=== PATIENT | male | born 1955 | race Caucasian/White ===

== ENCOUNTER 2016-10-28 17:03 | Emergency (ER) | payer OTHER ==
--- NOTE | 2016-10-28 18:15 | DIAGNOSTIC IMAGING REPORT ---
PROCEDURE: XR ABD SERIES 2V ABD/1V CHEST INDICATION: ABDOMINAL PAIN TECHNIQUE: AP supine and upright views with PA view chest. COMPARISON: None. FINDINGS: ABDOMEN: Bowel pattern is normal. No evidence of free air. Soft tissues and osseous structures are normal. CHEST: Lungs are clear. Heart and mediastinum are normal. Thorax is normal. IMPRESSION: 1. Negative acute abdomen series.
--- NOTE | 2016-10-28 19:06 | ED NURSING NOTES ---
Clinical Report - Nurses [facility] [place] [address] 10/28/2016 17:03 Patient: ALONSO LINDSAY TRIAGE Triage time 17:08. Acuity: LEVEL 3. Chief Complaint: ABDOMINAL PAIN, NAUSEA and DIARRHEA. Alert. No acute distress. SEPSIS SCREEN: Sepsis Screen: negative. Negative (no infection suspected/documented). --17:14 Malena Garcia R.N. 17:08 10/28/16. BP: 158/92. HR: 72. RR: 16. O2 saturation: 98% on room air. Temp: 98.1 F. --17:14 Malena Garcia R.N. 17:08 10/28/16. BP: 158/92. HR: 72. RR: 16. O2 saturation: 98% on room air. Temp: 98.1 F. --17:14 Malena Garcia R.N. 19:25 10/28/16. BP: 170/89. HR: 74. RR: 20. O2 saturation: 99% on room air. Temp: deferred. Pain level now: 09/30. --19:28 Malena Garcia R.N. Weight: 117.9 kg estimated. Height/Length: 72 inches Estimated. BMI: 35.3. --17:12 Malena Garcia R.N. Medications None. --17:12 Malena Garcia R.N. Medication/allergy information source: the patient. --17:14 Malena Garcia R.N. Allergies Codeine. --17:12 Malena Garcia R.N. History Arrived by EMS. Historian: patient. Primary physician (ayanna). This is a recurrent problem. Symptoms are intermittent and still present (1 months ago, pain in llq got worse today Movement makes feel like stabbing.). He has had nausea, diarrhea and cramping, intermittent abdominal pain. The pain is described as located in the LLQ and associated with nausea, vomiting and diarrhea. Last oral intake by patient was 3 hours ago. 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 See EMS report. BP: 158 / 92 sitting. HR: 72. RR: 16. Temp: 98.1 oral. O2 saturation: 98 % room air. ( Moved self to the [facility]). Upon arrival patient awake. SURGERY HX: Cholecystectomy. SOCIAL HX: Heavy tobacco smoker (cigarette)- less than 1 pack per day. No alcohol use or drug use. FALL RISK ASSESSMENT: Fall risk assessment completed. No fall risk identified. NUTRITIONAL RISK ASSESSMENT: The nutritional risk assessment revealed no deficiencies. FUNCTIONAL ASSESSMENT: Functional assessment: no impairments noted. LEARNING NEEDS ASSESSMENT: The learning needs assessment revealed no barriers. SKIN INTEGRITY ASSESSMENT: Skin integrity risk assessment completed. No skin integrity risk identified. MICHAEL COMA SCORE: Michael Coma Scale: 15- eyes open spontaneously (4); best verbal response- oriented x 4 (5); best motor response- obeys commands (6). --17:14 Malena Garcia R.N. PROBLEMS: Lifestyle / Substance Problems. Gastritis. Asthma. CVA - Cerebrovascular Accident. Restless Legs Syndrome. Hypertension. --17:12 Malena Garcia R.N. ADDITIONAL SURGERIES: Back Surgery. --17:12 Malena Garcia R.N. Interventions ID band on patient. To room. --17:14 Malena Garcia R.N. PHYSICAL ASSESSMENT To room via wheelchair. Patient gowned. GENERAL / NEURO / PSYCH: Alert. Oriented X 4. Appears in pain and anxious. HEENT: Mucous membranes are pink. RESPIRATORY: Respirations not labored. CVS: Capillary refill less than 2 seconds. GI / : Abdominal tenderness in the left lower quadrant. SKIN: Skin is warm and dry. --17:15 Malena Garcia R.N. NURSING PROGRESS NOTES Patient gowned. Head of bed elevated. Two patient identifiers checked. Call light placed in reach. Side rails up x 2. Bed placed in lowest position. Brakes of bed on. Patient ready for evaluation. --17:16 Malena Garcia R.N. 17:19 10/28/2016 Site #1 started via IV in the right wrist with an 20g angiocath, with aseptic technique and good blood return; one attempt. Blood drawn: rainbow set. Labeled in the presence of the patient and sent to the lab. Saline lock flushed with 10 mL saline. --17:29 Malena Garcia R.N. Patient returned from radiology by stretcher with tech. ([id number]). --18:00 Malena Garcia R.N. 17:55 10/28/2016 Morphine IVP 4 mg given. via site #1. Allergies verified, confirmed 5 rights and sedative warning given to the patient. IV patency established. IV site checked: no pain, redness, or swelling. IV flushed thoroughly pre- and post-medication administration. IVP given by RN. --18:01 Malena Garcia R.N. EKG time: (18:05 PM). EKG was performed by a tech and shown to the ED physician. --18:09 Fer Pastrana 18:20. Patient ID band checked for patient name and birthdate: patient confirmed urine collected with return of hi-colored clear urine; odor is normal; sample sent to lab for urinalysis. Specimen labeled in the presence of the patient. --18:31 Jessica Zacarias. DISPOSITION / DISCHARGE 19:20. Condition at departure: improved. No learning barriers present. Discharge instructions provided and reviewed with the patient. Reviewed medication(s) side effects, precautions, dosing and course information. Prescription(s) given to the patient. Patient verbalized understanding. Written instructions provided in [place]. The patient was discharged home and accompanied by oven baker. He left the Emergency Department ambulatory and via private vehicle. Director Of Federal Sales driving. Medication list reviewed and validated. --19:26 Malena Garcia R.N. 19:25 10/28/16. BP: 170/89. HR: 74. RR: 20. O2 saturation: 99% on room air. Temp: deferred. Pain level now: 09/30. 18:14 10/28/16. BP: 166/78. HR: 71. RR: 20. O2 saturation: 99% on room air. Pain level now: 08/30. 17:08 10/28/16. BP: 158/92. HR: 72. RR: 16. O2 saturation: 98% on room air. Temp: 98.1 F. --19:26 Malena Garcia R.N. Locked/Released at 10/28/2016 19:29 by Malena Garcia R.N.
--- NOTE | 2016-10-28 19:06 | ED ORDER SUMMARY ---
..... Patient: ALONSO LINDSAY OrderSheet [facility] VisitID: [id number] [address] [place] [address] 61y, M Registration Date/Time: 10/28/2016 ORDER SHEET Weight: 117.9 kg (estimated) Allergies: Codeine GENERAL ORDERS: Abd Series 2V Abd/1V Chest Urgent (17:16 10/28/2016 EKoroleva P.A.-C) (17:29 SRoberts R.N.) (Ack 17:29 LTapper) Land Surveying Party Chief (Continuous) (17:16 10/28/2016 EKoroleva P.A.-C) (17:59 SRoberts R.N.) Cardiac Panel Stat (17:16 10/28/2016 EKoroleva P.A.-C) (17:23 SRoberts R.N.) (Ack 17:29 LTapper) EKG - ER Stat (17:16 10/28/2016 EKoroleva P.A.-C) (Ack 17:29 LTapper) (17:59 SRoberts R.N.) Lipase Urgent (17:27 10/28/2016 EKoroleva P.A.-C) (Ack 17:29 LTapper) (17:43 SRoberts R.N.) Culture, Stool Urgent (17:29 10/28/2016 EKoroleva P.A.-C) (Ack 17:43 LTapper) (Cancelled: Unable to Otnnipy45:27 SRoberts R.N.) Urine Drug Screen Urgent (17:46 10/28/2016 EKoroleva P.A.-C) (Ack 17:48 LTapper) (19:17 AMcQuoid ER Tech1) UA-Culture if indicated Urgent (17:57 10/28/2016 EKoroleva P.A.-C) (Ack 17:59 RKaruga) (19:17 AMcQuoid ER Tech1) MEDICATION ORDERS: IV FLUIDS: IV Saline Lock (17:16 10/28/2016 EKoroleva P.A.-C) (17:29 SRoberts R.N.) Morphine IV 4 mg (HIGH ALERT MEDICATION, NOW) (17:16 10/28/2016 Mikala De La Torre) (Ack 17:31 Jason Shahid) (18:01 Jason Shahid) ORDER SHEET NOTES: [Electronically signed by Malena Garcia R.N. (19:29 10/28/2016)] [Electronically signed by Noemy Pedersen P.A.-C (19:46 10/28/2016)] [Electronically locked/signed by Malena Garcia R.N. (19:29 10/28/2016)]
--- NOTE | 2016-10-28 19:06 | ED CLINICAL REPORT ---
Clinical Report - Physicians/Mid Levels [facility] [address] [place] [address] 10/28/2016 17:03 [id number] Time Seen: 17:12 Oct 10 2016. Arrived- By ambulance. Historian- EMS personnel. HISTORY OF PRESENT ILLNESS Chief Complaint: ABDOMINAL PAIN. This started 1 months FRAME STYLIST and is still present. It is described as "pain" and it is described as located in the left abdomen. No nausea, loss of appetite, vomiting or diarrhea. (61-year-old male with abdominal pain over the last 1 month, worsening over the last few days, with associated diarrhea. Reports pain is under his rib cage. Denies any radiation of pain. Denies history of similar pain. Denies any trauma or car accident. Denies any heavy drinking. Patient is status post cholecystectomy. NO melana.). REVIEW OF SYSTEMS No constipation, hematemesis, difficulty with urination, pain with urination or urinary frequency. No fever, sore throat, blurred vision, chest pain or chills. All systems otherwise negative, except as recorded above. PAST HISTORY Problems: Lifestyle / Substance Problems. Gastritis. Asthma. CVA - Cerebrovascular Accident. Restless Legs Syndrome. Hypertension. Additional Surgeries: Back Surgery. Cholecystectomy. Medications: None. Allergies: Codeine. SOCIAL HISTORY Smoker- current status unknown. No alcohol use. ADDITIONAL NOTES The nursing notes have been reviewed. PHYSICAL EXAM Vital Signs: 10/28/2016 17:08 BP: 158/92. HR: 72. RR: 16. O2 saturation: 98%. Temp: 98.1 F. Appearance: Alert. ENT: Nose normal. Neck: Normal inspection. No carotid bruit or meningeal signs. CVS: Normal heart rate and rhythm. Heart sounds normal. Respiratory: No respiratory distress. Breath sounds normal. No accessory muscle use or decreased air movement. Abdomen: Moderate tenderness in the left side of the abdomen. No organomegaly. No mass. Obese. No scar present. Back: Normal inspection. No CVA tenderness. Skin: Normal skin color. Neuro: Oriented X 3. LABS, X-RAYS, AND EKG EKG: EKG time: (1805). No acute process. No acute ischemia. Normal EKG. Rate: 60. Normal QRS complex. Normal axis. Normal ST and T waves and QT. The study has been interpreted contemporaneously. The study has been independently viewed by me. The EKG appears to be a good tracing. Laboratory Tests: UA-Culture if indicated: (BECKY: 10/28/2016 18:20) ( [facility] 10/28/2016 18:59) Final results Test Result Flag Units (Reference) URINE COLOR YELLOW URINE APPEARANCE CLEAR URINE GLUCOSE NEGATIVE (NEGATIVE) URINE BILIRUBIN NEGATIVE (NEGATIVE) URINE KETONE TRACE (NEGATIVE) URINE SPECIFIC GRAVITY >= 1.030 (1.010-1.030) URINE PH 6.0 (5.0-8.0) URINE PROTEIN NEGATIVE (NEGATIVE) URINE UROBILINOGEN 1.0 EU/dL (0.2-1.0) URINE NITRITE NEGATIVE (NEGATIVE) URINE BLOOD NEGATIVE (NEGATIVE) URINE LEUK ESTERASE NEGATIVE (NEGATIVE) URINE RBC NONE SEEN rbc/hpf (0-1) URINE WBC 0-1 wbc/hpf (0-1) URINE EPITHELIAL CELLS 1-3 EPI/hpf (0-5) URINE BACTERIA TRACE (<1+) (NONE SEEN) URINE COMMENT CULT NOT INDICATED 3+ MUCOUSURINE CULTURES ARE SET-UP BASED ON THE FOLLOWING CRITERIA:POSITIVE NITRITEPOSITIVE LEUKOCYTE ESTERASEGREATER THAN 10 WHITE BLOOD CELLSMODERATE (2+) OR GREATER BACTERIA CBC w Diff: (BECKY: 10/28/2016 17:20) ( [facility] 10/28/2016 17:41) Final results Test Result Flag Units (Reference) WHITE BLOOD COUNT 7.4 K/uL (4.5-11.5) RED BLOOD COUNT 5.05 M/uL (4.50-5.90) HEMOGLOBIN 15.9 gm/dL (13.5-17.5) HEMATOCRIT 46.5 % (41.0-53.0) MEAN CELL VOLUME 92 fL (80-100) MEAN CORPUSCULAR HGB 32 pg (26-34) MEAN CORPUSCULAR HGB CONC 34 g/dL (31-37) RED CELL DISTRIBUTION WIDTH 13.6 % (11.6-14.8) PLATELET COUNT 179 K/uL (150-400) NEUTROPHIL % 68.5 % (50-75) LYMPH % 21.4 L % (25-40) MONO % 6.1 % (3-14) EOSINOPHIL % 3.6 % (0-4) BASOPHIL % 0.4 % (0-2) Urine Drug Screen: (BECKY: 10/28/2016 18:20) ( [facility] 10/28/2016 18:56) Final results Test Result Flag Units (Reference) AMPHETAMINE/METHAMPHETAMINE POSITIVE H (NEGATIVE) BARBITURATE NEGATIVE (NEGATIVE) BENZODIAZEPINE NEGATIVE (NEGATIVE) CANNABINOID NEGATIVE (NEGATIVE) COCAINE NEGATIVE (NEGATIVE) ECSTASY NEGATIVE (NEGATIVE) METHADONE NEGATIVE (NEGATIVE) OPIATE POSITIVE H (NEGATIVE) The urine drug screen is a qualitative screening test fordrug overdose and abuse. All screen results should beconsidered as presumptive.Drugs screened for are as follows:BenzodiazepinesCocaineAmphetamines/MetamphetaminesTHC (Tetrahydrocannabinol)OpiatesBarbituratesEcstasyMethadonePositive results are unconfirmed. For confirmation, notifythe lab for the specimen to be sent to the reference lab.All confirmations must be performed by a differentmethodology.The ingestion of natural herbal and plant productscontaining Ephedra/Ephedra metabolites can produce in urineone or more substances capable of cross reacting withamphetamine/methamphetamine immunoassays. These testsprovide a preliminary result only. A more specificalternative chemical method must be used to obtain aconfirmed analytical result. Lipase: (BECKY: 10/28/2016 17:20) ( [facility] 10/28/2016 17:47) Final results Test Result Flag Units (Reference) LIPASE 182 U/L (73-393) CHEM 13 PANEL: (BECKY: 10/28/2016 17:20) ( [facility] 10/28/2016 17:49) Final results Test Result Flag Units (Reference) GLUCOSE 153 H mg/dL (70-110) BUN 18 mg/dL (7-18) CREATININE 0.9 mg/dL (0.6-1.3) Estimated GFR >60 mL/min Estimated GFR- >60 mL/min Note: Persistent reduction over 3 months in eGFR<60 mL/min/1.73 m2 defines CKD. Patients with eGFR values>=60 mL/min/1.73 m2 may also have CKD if evidence ofpersistent proteinuria. Additional information may be foundat www.kidney.org. SODIUM 144 mmol/L (136-145) POTASSIUM 3.9 mmol/L (3.5-5.1) CHLORIDE 109 H mmol/L (98-107) CARBON DIOXIDE 28 mmol/L (21-32) CALCIUM 9.2 mg/dL (8.5-10.1) TOTAL PROTEIN 6.9 g/dL (6.4-8.2) ALBUMIN 3.3 g/dL (3.3-5.0) BILIRUBIN, TOTAL 0.2 mg/dL (0.0-1.0) ALKALINE PHOSPHATASE 107 U/L (46-116) AST (SGOT) 9 L U/L (15-37) ALT (SGPT) 39 U/L (12-78) CPK 48 U/L (24-260) MAGNESIUM 1.8 mg/dL (1.8-2.4) TROPONIN I <0.05 ng/mL (0.00-1.5) TROPONIN REFERENCE RANGE:<0.1 NEGATIVE0.1-1.5 INDETERMINANT>1.5 POSITIVE . Note - Tests: (xr abd series: IMPRESSION: 1. Negative acute abdomen series. Electronically Final signed by:Cesar Dos Santos MD 10/28/2016 6:14:55 PM). PROGRESS AND PROCEDURES Course of Care: During the time in the ED, the following DDX were considered: acute surgical abdomen, hemodynamic or metabolic instability, dehydration, gastroenteritis-viral, food borne, or bacterial, food intolerance, irritable or inflammatory bowel, infection, sepsis. Ongoing for a month, with no acute sob/ chest pain. No cva tendernss. 10/28/2016 19:25 BP: 170/89. HR: 74. RR: 20. O2 saturation: 99%. Pain level now: 2/10. Patient is stable. Patient/family counseled. Differential Diagnosis: I considered gastritis, gastroenteritis, peptic ulcer disease, acute appendicitis, diverticulitis, small bowel obstruction, adhesions, biliary colic, cholecystitis, hepatitis, pancreatitis, splenic injury, urinary tract infection, cystitis, ovarian cyst, abdominal aortic aneurysm, myocardial infarction, pneumonia, diabetic ketoacidosis and medications as a possible cause of abdominal pain in this patient. This is a partial list of diagnoses considered. Disposition: Discharged. Condition: good. CLINICAL IMPRESSION Acute abdominal pain of unknown cause. Hypertension. Substance abuse problems: abuse of methamphetamine. INSTRUCTIONS Drink plenty of fluids. (follow up with your DR in 3 days). Prescription Medications: Zofran (orally disintegrating tablets) 4 mg: take 1 orally every 6 hours for 3 days. Dispense ten (10). No refill. Substitution is permissible. Ultram 50 mg: take 1 orally every 6 hours for 3 days, as needed for pain. Dispense fifteen (15). No refills. Substitution is permissible. Understanding of the discharge instructions verbalized. (Electronically signed by Noemy Pedersen P.A.-C 10/28/2016 19:46) Addenda for ALONSO LINDSAY Jamel VisitID: [id number] Date: 10/28/2016 10/28/2016 19:31 19:20 10/28/2016 Site #1 removed upon discharge. Catheter intact. Bandaid applied. (Electronically signed by Malena Garcia R.N. - 10/28/2016 19:31)
--- NOTE | 2016-10-28 19:06 | ED ORDER SUMMARY ---
..... Patient: ALONSO LINDSAY OrderSheet [facility] VisitID: [id number] [address] [place] [address] 61y, M Registration Date/Time: 10/28/2016 ORDER SHEET Weight: 117.9 kg (estimated) Allergies: Codeine GENERAL ORDERS: Abd Series 2V Abd/1V Chest Urgent (17:16 10/28/2016 EKoroleva P.A.-C) (17:29 SRoberts R.N.) (Ack 17:29 LTapper) Web Interface Developer (Continuous) (17:16 10/28/2016 EKoroleva P.A.-C) (17:59 SRoberts R.N.) Cardiac Panel Stat (17:16 10/28/2016 EKoroleva P.A.-C) (17:23 SRoberts R.N.) (Ack 17:29 LTapper) EKG - ER Stat (17:16 10/28/2016 EKoroleva P.A.-C) (Ack 17:29 LTapper) (17:59 SRoberts R.N.) Lipase Urgent (17:27 10/28/2016 EKoroleva P.A.-C) (Ack 17:29 LTapper) (17:43 SRoberts R.N.) Culture, Stool Urgent (17:29 10/28/2016 EKoroleva P.A.-C) (Ack 17:43 LTapper) (Cancelled: Unable to Krqzkgm05:27 SRoberts R.N.) Urine Drug Screen Urgent (17:46 10/28/2016 EKoroleva P.A.-C) (Ack 17:48 LTapper) (19:17 AMcQuoid ER Tech1) UA-Culture if indicated Urgent (17:57 10/28/2016 EKoroleva P.A.-C) (Ack 17:59 RKaruga) (19:17 AMcQuoid ER Tech1) MEDICATION ORDERS: IV FLUIDS: IV Saline Lock (17:16 10/28/2016 EKoroleva P.A.-C) (17:29 SRoberts R.N.) Morphine IV 4 mg (HIGH ALERT MEDICATION, NOW) (17:16 10/28/2016 Mikala De La Torre) (Ack 17:31 Jason Shahid) (18:01 Jason Shahid) ORDER SHEET NOTES: [Electronically signed by Malena Garcia R.N. (19:29 10/28/2016)] [Electronically signed by Noemy Pedersen P.A.-C (19:46 10/28/2016)] [Electronically locked/signed by Malena Garcia R.N. (19:29 10/28/2016)]
--- NOTE | 2016-10-28 19:06 | ED NURSING NOTES ---
Clinical Report - Nurses [facility] [place] [address] 10/28/2016 17:03 Patient: ALONSO LINDSAY TRIAGE Triage time 17:08. Acuity: LEVEL 3. Chief Complaint: ABDOMINAL PAIN, NAUSEA and DIARRHEA. Alert. No acute distress. SEPSIS SCREEN: Sepsis Screen: negative. Negative (no infection suspected/documented). --17:14 Malena Garcia R.N. 17:08 10/28/16. BP: 158/92. HR: 72. RR: 16. O2 saturation: 98% on room air. Temp: 98.1 F. --17:14 Malena Garcia R.N. 17:08 10/28/16. BP: 158/92. HR: 72. RR: 16. O2 saturation: 98% on room air. Temp: 98.1 F. --17:14 Malena Garcia R.N. 19:25 10/28/16. BP: 170/89. HR: 74. RR: 20. O2 saturation: 99% on room air. Temp: deferred. Pain level now: 09/30. --19:28 Malena Garcia R.N. Weight: 117.9 kg estimated. Height/Length: 72 inches Estimated. BMI: 35.3. --17:12 Malena Garcia R.N. Medications None. --17:12 Malena Garcia R.N. Medication/allergy information source: the patient. --17:14 Malena Garcia R.N. Allergies Codeine. --17:12 Malena Garcia R.N. History Arrived by EMS. Historian: patient. Primary physician (ayanna). This is a recurrent problem. Symptoms are intermittent and still present (1 months ago, pain in llq got worse today Movement makes feel like stabbing.). He has had nausea, diarrhea and cramping, intermittent abdominal pain. The pain is described as located in the LLQ and associated with nausea, vomiting and diarrhea. Last oral intake by patient was 3 hours ago. 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 See EMS report. BP: 158 / 92 sitting. HR: 72. RR: 16. Temp: 98.1 oral. O2 saturation: 98 % room air. ( [place] [facility] Upon arrival patient awake. SURGERY HX: Cholecystectomy. SOCIAL HX: Heavy tobacco smoker (cigarette)- less than 1 pack per day. No alcohol use or drug use. FALL RISK ASSESSMENT: Fall risk assessment completed. No fall risk identified. NUTRITIONAL RISK ASSESSMENT: The nutritional risk assessment revealed no deficiencies. FUNCTIONAL ASSESSMENT: Functional assessment: no impairments noted. LEARNING NEEDS ASSESSMENT: The learning needs assessment revealed no barriers. SKIN INTEGRITY ASSESSMENT: Skin integrity risk assessment completed. No skin integrity risk identified. MICHAEL COMA SCORE: Michael Coma Scale: 15- eyes open spontaneously (4); best verbal response- oriented x 4 (5); best motor response- obeys commands (6). --17:14 Malena Garcia R.N. PROBLEMS: Lifestyle / Substance Problems. Gastritis. Asthma. CVA - Cerebrovascular Accident. Restless Legs Syndrome. Hypertension. --17:12 Malena Garcia R.N. ADDITIONAL SURGERIES: Back Surgery. --17:12 Malena Garcia R.N. Interventions ID band on patient. To room. --17:14 Malena Garcia R.N. PHYSICAL ASSESSMENT To room via wheelchair. Patient gowned. GENERAL / NEURO / PSYCH: Alert. Oriented X 4. Appears in pain and anxious. HEENT: Mucous membranes are pink. RESPIRATORY: Respirations not labored. CVS: Capillary refill less than 2 seconds. GI / : Abdominal tenderness in the left lower quadrant. SKIN: Skin is warm and dry. --17:15 Malena Garcia R.N. NURSING PROGRESS NOTES Patient gowned. Head of bed elevated. Two patient identifiers checked. Call light placed in reach. Side rails up x 2. Bed placed in lowest position. Brakes of bed on. Patient ready for evaluation. --17:16 Malena Garcia R.N. 17:19 10/28/2016 Site #1 started via IV in the right wrist with an 20g angiocath, with aseptic technique and good blood return; one attempt. Blood drawn: rainbow set. Labeled in the presence of the patient and sent to the lab. Saline lock flushed with 10 mL saline. --17:29 Malena Garcia R.N. Patient returned from radiology by stretcher with tech. ([id number]). --18:00 Malena Garcia R.N. 17:55 10/28/2016 Morphine IVP 4 mg given. via site #1. Allergies verified, confirmed 5 rights and sedative warning given to the patient. IV patency established. IV site checked: no pain, redness, or swelling. IV flushed thoroughly pre- and post-medication administration. IVP given by RN. --18:01 Malena Garcia R.N. EKG time: (18:05 PM). EKG was performed by a tech and shown to the ED physician. --18:09 Fer Pastrana 18:20. Patient ID band checked for patient name and birthdate: patient confirmed urine collected with return of hi-colored clear urine; odor is normal; sample sent to lab for urinalysis. Specimen labeled in the presence of the patient. --18:31 Jessica Zacarias. DISPOSITION / DISCHARGE 19:20. Condition at departure: improved. No learning barriers present. Discharge instructions provided and reviewed with the patient. Reviewed medication(s) side effects, precautions, dosing and course information. Prescription(s) given to the patient. Patient verbalized understanding. Written instructions provided in Polish. The patient was discharged home and accompanied by research leader. He left the Emergency Department ambulatory and via private vehicle. Blood Bank Attendant driving. Medication list reviewed and validated. --19:26 Malena Garcia R.N. 19:25 10/28/16. BP: 170/89. HR: 74. RR: 20. O2 saturation: 99% on room air. Temp: deferred. Pain level now: 09/30. 18:14 10/28/16. BP: 166/78. HR: 71. RR: 20. O2 saturation: 99% on room air. Pain level now: 08/30. 17:08 10/28/16. BP: 158/92. HR: 72. RR: 16. O2 saturation: 98% on room air. Temp: 98.1 F. --19:26 Malena Garcia R.N. Locked/Released at 10/28/2016 19:29 by Malena Garcia R.N.
--- NOTE | 2016-10-28 19:06 | ED CLINICAL REPORT ---
Clinical Report - Physicians/Mid Levels [facility] [address] [place] [address] 10/28/2016 17:03 [id number] Time Seen: 17:12 Oct 10 2016. Arrived- By ambulance. Historian- EMS personnel. HISTORY OF PRESENT ILLNESS Chief Complaint: ABDOMINAL PAIN. 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 It is described as "pain" and it is described as located in the left abdomen. No nausea, loss of appetite, vomiting or diarrhea. (61-year-old male with abdominal pain over the last 1 month, worsening over the last few days, with associated diarrhea. Reports pain is under his rib cage. Denies any radiation of pain. Denies history of similar pain. Denies any trauma or car accident. Denies any heavy drinking. Patient is status post cholecystectomy. NO melana.). REVIEW OF SYSTEMS No constipation, hematemesis, difficulty with urination, pain with urination or urinary frequency. No fever, sore throat, blurred vision, chest pain or chills. All systems otherwise negative, except as recorded above. PAST HISTORY Problems: Lifestyle / Substance Problems. Gastritis. Asthma. CVA - Cerebrovascular Accident. Restless Legs Syndrome. Hypertension. Additional Surgeries: Back Surgery. Cholecystectomy. Medications: None. Allergies: Codeine. SOCIAL HISTORY Smoker- current status unknown. No alcohol use. ADDITIONAL NOTES The nursing notes have been reviewed. PHYSICAL EXAM Vital Signs: 10/28/2016 17:08 BP: 158/92. HR: 72. RR: 16. O2 saturation: 98%. Temp: 98.1 F. Appearance: Alert. ENT: Nose normal. Neck: Normal inspection. No carotid bruit or meningeal signs. CVS: Normal heart rate and rhythm. Heart sounds normal. Respiratory: No respiratory distress. Breath sounds normal. No accessory muscle use or decreased air movement. Abdomen: Moderate tenderness in the left side of the abdomen. No organomegaly. No mass. Obese. No scar present. Back: Normal inspection. No CVA tenderness. Skin: Normal skin color. Neuro: Oriented X 3. LABS, X-RAYS, AND EKG EKG: EKG time: (1805). No acute process. No acute ischemia. Normal EKG. Rate: 60. Normal QRS complex. Normal axis. Normal ST and T waves and QT. The study has been interpreted contemporaneously. The study has been independently viewed by me. The EKG appears to be a good tracing. Laboratory Tests: UA-Culture if indicated: (BECKY: 10/28/2016 18:20) ( [facility] [place] 10/28/2016 18:59) Final results Test Result Flag Units (Reference) URINE COLOR YELLOW URINE APPEARANCE CLEAR URINE GLUCOSE NEGATIVE (NEGATIVE) URINE BILIRUBIN NEGATIVE (NEGATIVE) URINE KETONE TRACE (NEGATIVE) URINE SPECIFIC GRAVITY >= 1.030 (1.010-1.030) URINE PH 6.0 (5.0-8.0) URINE PROTEIN NEGATIVE (NEGATIVE) URINE UROBILINOGEN 1.0 EU/dL (0.2-1.0) URINE NITRITE NEGATIVE (NEGATIVE) URINE BLOOD NEGATIVE (NEGATIVE) URINE LEUK ESTERASE NEGATIVE (NEGATIVE) URINE RBC NONE SEEN rbc/hpf (0-1) URINE WBC 0-1 wbc/hpf (0-1) URINE EPITHELIAL CELLS 1-3 EPI/hpf (0-5) URINE BACTERIA TRACE (<1+) (NONE SEEN) URINE COMMENT CULT NOT INDICATED 3+ MUCOUSURINE CULTURES ARE SET-UP BASED ON THE FOLLOWING CRITERIA:POSITIVE NITRITEPOSITIVE LEUKOCYTE ESTERASEGREATER THAN 10 WHITE BLOOD CELLSMODERATE (2+) OR GREATER BACTERIA CBC w Diff: (BECKY: 10/28/2016 17:20) ( [facility] 10/28/2016 17:41) Final results Test Result Flag Units (Reference) WHITE BLOOD COUNT 7.4 K/uL (4.5-11.5) RED BLOOD COUNT 5.05 M/uL (4.50-5.90) HEMOGLOBIN 15.9 gm/dL (13.5-17.5) HEMATOCRIT 46.5 % (41.0-53.0) MEAN CELL VOLUME 92 fL (80-100) MEAN CORPUSCULAR HGB 32 pg (26-34) MEAN CORPUSCULAR HGB CONC 34 g/dL (31-37) RED CELL DISTRIBUTION WIDTH 13.6 % (11.6-14.8) PLATELET COUNT 179 K/uL (150-400) NEUTROPHIL % 68.5 % (50-75) LYMPH % 21.4 L % (25-40) MONO % 6.1 % (3-14) EOSINOPHIL % 3.6 % (0-4) BASOPHIL % 0.4 % (0-2) Urine Drug Screen: (BECKY: 10/28/2016 18:20) ( [facility] 10/28/2016 18:56) Final results Test Result Flag Units (Reference) AMPHETAMINE/METHAMPHETAMINE POSITIVE H (NEGATIVE) BARBITURATE NEGATIVE (NEGATIVE) BENZODIAZEPINE NEGATIVE (NEGATIVE) CANNABINOID NEGATIVE (NEGATIVE) COCAINE NEGATIVE (NEGATIVE) ECSTASY NEGATIVE (NEGATIVE) METHADONE NEGATIVE (NEGATIVE) OPIATE POSITIVE H (NEGATIVE) The urine drug screen is a qualitative screening test fordrug overdose and abuse. All screen results should beconsidered as presumptive.Drugs screened for are as follows:BenzodiazepinesCocaineAmphetamines/MetamphetaminesTHC (Tetrahydrocannabinol)OpiatesBarbituratesEcstasyMethadonePositive results are unconfirmed. For confirmation, notifythe lab for the specimen to be sent to the reference lab.All confirmations must be performed by a differentmethodology.The ingestion of natural herbal and plant productscontaining Ephedra/Ephedra metabolites can produce in urineone or more substances capable of cross reacting withamphetamine/methamphetamine immunoassays. These testsprovide a preliminary result only. A more specificalternative chemical method must be used to obtain aconfirmed analytical result. Lipase: (BECKY: 10/28/2016 17:20) ( [facility] 10/28/2016 17:47) Final results Test Result Flag Units (Reference) LIPASE 182 U/L (73-393) CHEM 13 PANEL: (BECKY: 10/28/2016 17:20) ( [facility] 10/28/2016 17:49) Final results Test Result Flag Units (Reference) GLUCOSE 153 H mg/dL (70-110) BUN 18 mg/dL (7-18) CREATININE 0.9 mg/dL (0.6-1.3) Estimated GFR >60 mL/min Estimated GFR- >60 mL/min Note: Persistent reduction over 3 months in eGFR<60 mL/min/1.73 m2 defines CKD. Patients with eGFR values>=60 mL/min/1.73 m2 may also have CKD if evidence ofpersistent proteinuria. Additional information may be foundat www.kidney.org. SODIUM 144 mmol/L (136-145) POTASSIUM 3.9 mmol/L (3.5-5.1) CHLORIDE 109 H mmol/L (98-107) CARBON DIOXIDE 28 mmol/L (21-32) CALCIUM 9.2 mg/dL (8.5-10.1) TOTAL PROTEIN 6.9 g/dL (6.4-8.2) ALBUMIN 3.3 g/dL (3.3-5.0) BILIRUBIN, TOTAL 0.2 mg/dL (0.0-1.0) ALKALINE PHOSPHATASE 107 U/L (46-116) AST (SGOT) 9 L U/L (15-37) ALT (SGPT) 39 U/L (12-78) CPK 48 U/L (24-260) MAGNESIUM 1.8 mg/dL (1.8-2.4) TROPONIN I <0.05 ng/mL (0.00-1.5) TROPONIN REFERENCE RANGE:<0.1 NEGATIVE0.1-1.5 INDETERMINANT>1.5 POSITIVE . Note - Tests: (xr abd series: IMPRESSION: 1. Negative acute abdomen series. Electronically Final signed by:Cesar Dos Santos MD 10/28/2016 6:14:55 PM). PROGRESS AND PROCEDURES Course of Care: During the time in the ED, the following DDX were considered: acute surgical abdomen, hemodynamic or metabolic instability, dehydration, gastroenteritis-viral, food borne, or bacterial, food intolerance, irritable or inflammatory bowel, infection, sepsis. Ongoing for a month, with no acute sob/ chest pain. No cva tendernss. 10/28/2016 19:25 BP: 170/89. HR: 74. RR: 20. O2 saturation: 99%. Pain level now: 2/10. Patient is stable. Patient/family counseled. Differential Diagnosis: I considered gastritis, gastroenteritis, peptic ulcer disease, acute appendicitis, diverticulitis, small bowel obstruction, adhesions, biliary colic, cholecystitis, hepatitis, pancreatitis, splenic injury, urinary tract infection, cystitis, ovarian cyst, abdominal aortic aneurysm, myocardial infarction, pneumonia, diabetic ketoacidosis and medications as a possible cause of abdominal pain in this patient. This is a partial list of diagnoses considered. Disposition: Discharged. Condition: good. CLINICAL IMPRESSION Acute abdominal pain of unknown cause. Hypertension. Substance abuse problems: abuse of methamphetamine. INSTRUCTIONS Drink plenty of fluids. (follow up with your DR in 3 days). Prescription Medications: Zofran (orally disintegrating tablets) 4 mg: take 1 orally every 6 hours for 3 days. Dispense ten (10). No refill. Substitution is permissible. Ultram 50 mg: take 1 orally every 6 hours for 3 days, as needed for pain. Dispense fifteen (15). No refills. Substitution is permissible. Understanding of the discharge instructions verbalized. (Electronically signed by Noemy Pedersen P.A.-C 10/28/2016 19:46) Addenda for ALONSO LINDSAY [facility] VisitID: [id number] Date: 10/28/2016 10/28/2016 19:31 19:20 10/28/2016 Site #1 removed upon discharge. Catheter intact. Bandaid applied. (Electronically signed by Malena Garcia R.N. - 10/28/2016 19:31)
--- NOTE | 2016-10-28 19:46 | ED MED RECONCILIATION SUMMARY ---
Patient: ALONSO LINDSAY Medication Reconciliation Report [facility] VisitID: [id number] [address] [place] [address] 61y, M Registration Date/Time: 10/28/2016 Weight: 117.9 kg Height/Length: 72 in. BMI: 35.3 ALLERGIES: Codeine The patient's Home Medications are listed below: NONE. The source(s) of the original Home Medication information: patient The following Medications were given to the patient in the Emergency Department: Morphine [IVP] IVP 4 mg, administered: 10/28/2016 5:55:00 PM The following Medications were prescribed to the patient: Zofran (orally disintegrating tablets) 4 mg: take 1 orally every 6 hours for 3 days. Dispense ten (10). No refill. Substitution is permissible. -- Noemy Pedersen, P.A.-C Ultram 50 mg: take 1 orally every 6 hours for 3 days, as needed for pain. Dispense fifteen (15). No refills. Substitution is permissible. -- Noemy Pedersen, P.A.-C
--- NOTE | 2016-10-28 19:46 | ED MED RECONCILIATION SUMMARY ---
Patient: ALONSO LINDSAY Medication Reconciliation Report [facility] VisitID: [id number] [address] [place] [address] 61y, M Registration Date/Time: 10/28/2016 Weight: 117.9 kg Height/Length: 72 in. BMI: 35.3 ALLERGIES: Codeine The patient's Home Medications are listed below: NONE. The source(s) of the original Home Medication information: patient The following Medications were given to the patient in the Emergency Department: Morphine [IVP] IVP 4 mg, administered: 10/28/2016 5:55:00 PM The following Medications were prescribed to the patient: Zofran (orally disintegrating tablets) 4 mg: take 1 orally every 6 hours for 3 days. Dispense ten (10). No refill. Substitution is permissible. -- Noemy Pedersen, P.A.-C Ultram 50 mg: take 1 orally every 6 hours for 3 days, as needed for pain. Dispense fifteen (15). No refills. Substitution is permissible. -- Noemy Pedersen, P.A.-C
--- NOTE | 2016-10-28 19:46 | ED DISCHARGE INSTRUCTIONS ---
Patient: ALONSO LINDSAY General Instructions [facility] VisitID: [id number] [place] [address] 61y, M Registration Date/Time: 10/28/2016 Acute abdominal pain of unknown cause. Hypertension. Substance abuse problems: abuse of methamphetamine. INSTRUCTIONS Drink plenty of fluids. (follow up with your DR in 3 days). Prescription Medications: Zofran (orally disintegrating tablets) 4 mg: take 1 orally every 6 hours for 3 days. Dispense ten (10). No refill. Substitution is permissible. Ultram 50 mg: take 1 orally every 6 hours for 3 days, as needed for pain. Dispense fifteen (15). No refills. Substitution is permissible. Understanding of the discharge instructions verbalized. ADDITIONAL INFORMATION Abdominal Pain,Uncertain Cause [Male] Based on your visit today, the exact cause of your abdominalpain is not clear. Your exam and tests do not indicate a dangerous cause at this time. However, the signs of a serious problem may take more time to appear. Although your evaluation was reassuring today, sometimes early in the course of many conditions, exam and lab tests can appear normal. Therefore, it is important for you to watch for any new symptoms or worsening of your condition. Causes It may not be obvious what caused your symptoms. Pay attention to things that do seem to make your symptoms worse or better and discuss this with your doctor when you follow up. Diagnosis The evaluation of abdominal pain in the emergency department may onlyrequire an exam by the doctor or it may include blood, urine or imaging studies, depending on many factors. Sometimes exams and tests can identify a cause but in many cases, a clear cause is not found. Further testing at follow up visits may help to suggest a clear diagnosis. Home Care Rest as much as possible until your next exam. Try to avoid any medications (unless otherwise directed by your doctor), foods, activities, or other factors that you may have contributed to your symptoms. Try to eat foods that you know that you have tolerated well in the past. Certain diets may be recommended for some conditions that cause abdominal pain. However, since the cause of your symptoms may not be clear, discuss your diet more with your primary care provider or specialist for further recommendations. Eating several small meals per day as opposed to 2 or 3 larger meals may help. Monitor closely for anything that may make your symptoms worse or better. Pay close attention to symptoms below that may indicate worsening of your condition. Follow Up and Precautions See your doctoras instructed or sooneror if your symptoms are not improving.In some cases, you may need more testing. When to Seek Medical Attention Contact your doctor or see medical attention ifany of the following occur: Pain is becoming worse You are unable to take your medications due to excessive vomiting Swelling of the abdomen Fever of 100.4F (38C) or higher, or as directed by your health care provider Blood in vomit or bowel movements (dark red or black color) Jaundice (yellow color of eyes and skin) New onset of weakness, dizziness or fainting New onset of chest, arm, back, neck or jaw pain Symptoms With Uncertain Cause [Adult] Based on the exam and any tests that were performed today, the exact cause of your symptoms is not certain. While your condition does not seem serious, the signs of a serious problem may take more time to appear. Therefore, it is important for you to watch for any new symptoms or worsening of your condition.Follow up with your doctor or this facility, as directed.A repeat physical exam or additional testing at a later time may uncover a cause for your symptoms that is not evident today. Home Care: Resume your usual activities and diet when this feels comfortable to do so. Follow Up with your doctor, or as advised by our staff.Contact your doctor sooner if your symptoms do not begin to improve in the next few days. [NOTE: If you had an x-ray, CT scan, ultrasound, or ECG (electrocardiogram), it will be reviewed by a specialist. You will be notified of any new findings that may affect your care.] Get Prompt Medical Attention if any of the following occur: Current symptoms get worse New symptoms appear High Blood Pressure -- To Be Confirmed [No Tx] Your blood pressure was higher today than normal. Sometimes anxiety or pain can cause a temporary rise in blood pressure that later returns to normal. If your blood pressure is high on one measurement, this does not mean that you have hypertension (a chronic illness). However, you must have your blood pressure measured again within the next few days to find out if its still high. A normal blood pressure is 120/80 or less. The first (top) number is the "systolic" pressure. The second (bottom) number is the "diastolic" pressure. Hypertension exists when either the top number is 140 or higher, OR the bottom number is 90 or higher on repeated measurements. Blood pressure in the range of 120-140 (systolic) or 80-89 (diastolic) is considered "pre-hypertension". This means your are at risk for getting hypertension. You should have regular blood pressure checks to be sure your blood pressure is not rising. Home Care: Measure your blood pressure on 3 different days and write down the results. This can be done at your doctor's office or this facility. Some pharmacies and grocery stores offer automated blood pressure machines for your use. Follow Up: If your blood pressure is "high" (over 120/80) on 2 out of 3 days, you will need to follow up with your doctor for further evaluation and treatment. DO NOT PUT THIS OFF! Untreated high blood pressure increases the risk for heart attack, also known as acute myocardial infarction, or AMI, and stroke. It is a treatable condition. Get Prompt Medical Attention if any of the following occur: Chest pain or shortness of breath Severe headache Throbbing or rushing sound in the ears Nosebleed Sudden severe abdominal pain Extreme drowsiness, confusion or fainting Dizziness or vertigo (dizziness with spinning sensation) Weakness of an arm or leg or one side of the face Difficulty with speech or vision Ondansetron Oral disintegrating tablet What is this medicine? ONDANSETRON (on CASSIE se espinoza) is used to treat nausea and vomiting caused by chemotherapy. It is also used to prevent or treat nausea and vomiting after surgery. How should I use this medicine? These tablets are made to dissolve in the mouth. Do not try to push the tablet through the foil backing. With dry hands, peel away the foil backing and gently remove the tablet. Place the tablet in the mouth and allow it to dissolve, then swallow. While you may take these tablets with water, it is not necessary to do so. Talk to your tapering machine operator regarding the use of this medicine in children. Special care may be needed. What side effects may I notice from receiving this medicine? Side effects that you should report to your doctor or health health and social care teacher as soon as possible: allergic reactions like skin rash, itching or hives, swelling of the face, lips, or tongue breathing problems dizziness fast or irregular heartbeat feeling faint or lightheaded, falls fever and chills swelling of the hands and feet tightness in the chest Side effects that usually do not require medical attention (report to your doctor or health health and social care teacher if they continue or are bothersome): constipation or diarrhea headache What may interact with this medicine? Do not take this medicine with any of the following medications: -apomorphine -cisapride -dofetilide -dronedarone -pimozide -thioridazine -ziprasidone This medicine may also interact with the following medications: -carbamazepine -phenytoin -rifampicin -tramadol -other medicines that prolong the QT interval (cause an abnormal heart rhythm) What if I miss a dose? If you miss a dose, take it as soon as you can. If it is almost time for your next dose, take only that dose. Do not take double or extra doses. Where should I keep my medicine? Keep out of the reach of children. Store between 2 and 30 degrees C (36 and 86 degrees F). Throw away any unused medicine after the expiration date. What should I tell my health care provider before I take this medicine? They need to know if you have any of these conditions: heart disease history of irregular heartbeat liver disease low levels of magnesium or potassium in the blood an unusual or allergic reaction to ondansetron, granisetron, other medicines, foods, dyes, or preservatives or trying to get breast-feeding What should I watch for while using this medicine? Check with your doctor or health health and social care teacher as soon as you can if you have any sign of an allergic reaction. Tramadol Hydrochloride Oral tablet What is this medicine? TRAMADOL (TRA ma dole) is a pain reliever. It is used to treat moderate to severe pain in adults. How should I use this medicine? Take this medicine by mouth with a full glass of water. Follow the directions on the prescription label. If the medicine upsets your stomach, take it with food or milk. Do not take more medicine than you are told to take. Talk to your tapering machine operator regarding the use of this medicine in children. Special care may be needed. What side effects may I notice from receiving this medicine? Side effects that you should report to your doctor or health health and social care teacher as soon as possible: allergic reactions like skin rash, itching or hives, swelling of the face, lips, or tongue breathing difficulties, wheezing confusion itching light headedness or fainting spells redness, blistering, peeling or loosening of the skin, including inside the mouth seizures Side effects that usually do not require medical attention (report to your doctor or health health and social care teacher if they continue or are bothersome): constipation dizziness drowsiness headache nausea, vomiting What may interact with this medicine? Do not take this medicine with any of the following medications: MAOIs like Carbex, Eldepryl, Marplan, Nardil, and Parnate This medicine may also interact with the following medications: alcohol or medicines that contain alcohol antihistamines benzodiazepines bupropion carbamazepine or oxcarbazepine clozapine cyclobenzaprine digoxin furazolidone linezolid medicines for depression, anxiety, or psychotic disturbances medicines for migraine headache like almotriptan, eletriptan, frovatriptan, naratriptan, rizatriptan, sumatriptan, zolmitriptan medicines for pain like pentazocine, buprenorphine, butorphanol, meperidine, nalbuphine, and propoxyphene medicines for sleep muscle relaxants naltrexone phenobarbital phenothiazines like perphenazine, thioridazine, chlorpromazine, mesoridazine, fluphenazine, prochlorperazine, promazine, and trifluoperazine procarbazine warfarin What if I miss a dose? If you miss a dose, take it as soon as you can. If it is almost time for your next dose, take only that dose. Do not take double or extra doses. Where should I keep my medicine? Keep out of the reach of children. Store at room temperature between 15 and 30 degrees C (59 and 86 degrees F). Keep container tightly closed. Throw away any unused medicine after the expiration date. What should I tell my health care provider before I take this medicine? They need to know if you have any of these conditions: brain tumor depression drug abuse or addiction head injury if you frequently drink alcohol containing drinks kidney disease or trouble passing urine liver disease lung disease, asthma, or breathing problems seizures or epilepsy suicidal thoughts, plans, or attempt; a previous suicide attempt by you or a family member an unusual or allergic reaction to tramadol, codeine, other medicines, foods, dyes, or preservatives or trying to get breast-feeding What should I watch for while using this medicine? Tell your doctor or health health and social care teacher if your pain does not go away, if it gets worse, or if you have new or a different type of pain. You may develop tolerance to the medicine. Tolerance means that you will need a higher dose of the medicine for pain relief. Tolerance is normal and is expected if you take this medicine for a long time. Do not suddenly stop taking your medicine because you may develop a severe reaction. Your body becomes used to the medicine. This does NOT mean you are addicted. Addiction is a behavior related to getting and using a drug for a non-medical reason. If you have pain, you have a medical reason to take pain medicine. Your doctor will tell you how much medicine to take. If your doctor wants you to stop the medicine, the dose will be slowly lowered over time to avoid any side effects. You may get drowsy or dizzy. Do not drive, use machinery, or do anything that needs mental alertness until you know how this medicine affects you. Do not stand or sit up quickly, especially if you are an older patient. This reduces the risk of dizzy or fainting spells. Alcohol can increase or decrease the effects of this medicine. Avoid alcoholic drinks. You may have constipation. Try to have a bowel movement at least every 2 to 3 days. If you do not have a bowel movement for 3 days, call your doctor or health health and social care teacher. Your mouth may get dry. Chewing sugarless gum or sucking hard candy, and drinking plenty of water may help. Contact your doctor if the problem does not go away or is severe. You have been given the following additional information: Abdominal Pain, Unknown Cause, (Male) Symptoms With Uncertain Cause Hypertension, To Be Confirmed Ondansetron Oral disintegrating tablet Tramadol Hydrochloride Oral tablet (Electronically signed by Noemy Pedersen P.A.-C 10/28/2016 19:46)
--- NOTE | 2016-10-28 19:46 | ED MAR SUMMARY ---
..... Medication Administration Record [facility] [address] [place] [address] Patient: ALONSO LINDSAY Visit ID: [id number] 61y, M Weight: 117.9 kg Height/Length: 72 in BMI: 35.3 ALLERGIES: Codeine Given 17:55 10/28/2016 Malena Garcia R.N. Medication Administered: MORPHINE [IVP], Dose: 4 mg IVP, Site: #1 right wrist. Medication Ordered: Morphine IV 4 mg (HIGH ALERT MEDICATION, NOW).
--- NOTE | 2016-10-28 19:46 | ED MAR SUMMARY ---
..... Medication Administration Record [facility] [address] [place] [address] Patient: ALONSO LINDSAY Visit ID: [id number] 61y, M Weight: 117.9 kg Height/Length: 72 in BMI: 35.3 ALLERGIES: Codeine Given 17:55 10/28/2016 Malena Garcia R.N. Medication Administered: MORPHINE [IVP], Dose: 4 mg IVP, Site: #1 right wrist. Medication Ordered: Morphine IV 4 mg (HIGH ALERT MEDICATION, NOW).
== END 2016-10-28 19:20 | disposition home or self-care (01) ==
LOC: ED SRH 17:03
DX: R10.9 Unspecified abdominal pain (principal); I10 Essential (primary) hypertension; F19.10 Other psychoactive substance abuse, uncomplicated; F17.210 Nicotine dependence, cigarettes, uncomplicated; J45.909 Unspecified asthma, uncomplicated; Z88.5 Allergy status to narcotic agent
CPT/HCPCS: 90004; 90100; 90616; 92235; 92610; 92720; 92760; 92761; 92762; 92763; 92764; 92765; 92766; 92767; 95059